=== PATIENT | male | born 1940 | race Hispanic/Latino ===

== ENCOUNTER 2019-05-03 05:30 | Day surgery (SDC) | payer OTHER ==
[~2019-05-03] VITALS: Ht 162.6 cm; Wt 107.0 kg
[2019-05-03] MEDS ORDERED: SODIUM CHLORIDE 0.9% 1000ML 1,000 ML IV ONE (05:43)
[2019-05-03 06:04] VITALS: BP 162/78
[2019-05-03] MEDS ORDERED: desmopressin PO (06:32)
[2019-05-03] MEDS ORDERED: ASPI-555 PO (06:32)
[2019-05-03] MEDS ORDERED: MVIT PO (06:32)
[2019-05-03] MEDS ORDERED: SIMV40TA5 PO (06:32)
[2019-05-03] MEDS ORDERED: TAMS-1 PO (06:32)
[2019-05-03] MEDS ORDERED: desmopressin (06:32)
[2019-05-03] MEDS ORDERED: LEVO25TA54 PO (06:32)
[2019-05-03] MEDS ORDERED: CHOL400T4 PO (06:32)
[2019-05-03] MEDS ORDERED: LISI10TA7 PO (06:32)
[2019-05-03] MEDS ORDERED: [UNRECOGNIZED DRUG - OTHER] PO (06:32)
[2019-05-03] MEDS ORDERED: iron PO (06:32)
[2019-05-03] MEDS ORDERED: HYDR5TAB8 PO (06:32)
[2019-05-03] MEDS ORDERED: LIDOCAINE HCL 1% 20 ML VIAL ONE (06:41)
[2019-05-03] MEDS ORDERED: PROPOFOL 10 MG/ML 20ML VIAL IV ONE (06:41)
[2019-05-03 07:27] VITALS: BP 112/55
[2019-05-03 07:32] VITALS: BP 121/55
[2019-05-03 07:37] VITALS: BP 153/82
[2019-05-03 07:42] VITALS: BP 153/80
[2019-05-03 07:46] VITALS: BP 146/79
== END 2019-05-03 07:55 | disposition home or self-care (01) ==
LOC: ENDO 05:30 → DAH 05:30 → ENDO 07:55
PROVIDERS: ATTEND Internal Medicine
DX: K63.5 Polyp of colon (principal); K29.50 Unspecified chronic gastritis without bleeding; K64.0 First degree hemorrhoids; B96.81 Helicobacter pylori [H. pylori] as the cause of diseases classified elsewhere; D50.9 Iron deficiency anemia, unspecified; E03.9 Hypothyroidism, unspecified; I10 Essential (primary) hypertension; E78.2 Mixed hyperlipidemia; I25.10 Atherosclerotic heart disease of native coronary artery without angina pectoris; Z79.899 Other long term (current) drug therapy; Z79.82 Long term (current) use of aspirin; Z85.828 Personal history of other malignant neoplasm of skin; Z98.890 Other specified postprocedural states; Z87.891 Personal history of nicotine dependence; Z80.0 Family history of malignant neoplasm of digestive organs; Z82.49 Family history of ischemic heart disease and other diseases of the circulatory system; Z83.3 Family history of diabetes mellitus
CPT/HCPCS: 43239; 45380; 88305; A4606; J2704; J7030

== ENCOUNTER → 2019-05-20 | Outpatient (CLI) | payer OTHER ==
[~2019-05-20] MED LIST: ASPI-555 PO; CHOL400T4 PO; HYDR5TAB8 PO; LEVO25TA54 PO; LISI10TA7 PO; MVIT PO; SIMV40TA5 PO; TAMS-1 PO; [UNRECOGNIZED DRUG - OTHER] PO; iron PO
== END | disposition still patient (30) ==
LOC: RAH 13:06
PROVIDERS: ATTEND Internal Medicine
DX: J94.8 Other specified pleural conditions (principal); I51.7 Cardiomegaly; I25.10 Atherosclerotic heart disease of native coronary artery without angina pectoris; F17.200 Nicotine dependence, unspecified, uncomplicated
CPT/HCPCS: 71250

== ENCOUNTER → 2019-05-23 | Outpatient (CLI) | payer OTHER | END | disposition home or self-care (01) | LOC: SHCH 08:20 | PROVIDERS: ATTEND Internal Medicine Cardiovascular Disease | DX: I45.10 Unspecified right bundle-branch block (principal); I25.810 Atherosclerosis of coronary artery bypass graft(s) without angina pectoris | CPT/HCPCS: 93306 ==